=== PATIENT | female | born 1965 | race Caucasian/White ===

== ENCOUNTER → 2016-05-07 | Outpatient (CLI) | payer OTHER ==
[~2016-05-07] MED LIST: COREG3.125 MG PO; EFFEXOR XR75 MG PO; Fioricet 325 MG1 TAB PO; LEVAQUIN750 M1 PO; LIPITOR20 MG PO; LISINOPRIL10 M1 PO; LORAZEPAM1 MG PO; MELOXICAM15 MG PO; METFORMIN HCL500 MG PO; METFORMIN HYDR500 M1 PO; METFORMIN500 MG PO; Motrin,Rufen800 MG PO; PEPCID40 MG PO; PERCOCET 325 MG1 TA2 PO; VENLAFAXINE HY150 M2 PO; ZYRTEC10 M3 PO
== END | disposition home or self-care (01) ==
LOC: CARD 04-28 16:00
DX: I31.3 Pericardial effusion (noninflammatory) (principal)

== ENCOUNTER → 2016-12-16 | Outpatient (CLI) | payer OTHER ==
[2016-12-16 11:22] LABS: HEMOGLOBIN 11.9 g/dl (12.0-16.0); MEAN CELL VOLUME 91.1 fl (81.0-99.0); MEAN CORPUSCULAR HGB 30.1 pg (27.0-31.0); MEAN CORPUSCULAR HGB CONC 33.1 g/dl (33.0-37.0); MEAN PLATELET VOLUME 10.8 fl (9.6-12.3); PLATELET COUNT AUTOMATED 362 10*3/uL (130-400); RED BLOOD COUNT 3.95 10*6/uL (4.10-5.10); RED CELL DISTRI WIDTH 12.7 % (0-14.5); WHITE BLOOD COUNT 16.2 10*3/uL (4.8-10.8)
[2016-12-16 11:29] LABS: ALBUMIN 3.3 gm/dl (3.1-4.5); ALKALINE PHOSPHATASE 91 U/L (45-117); BUN 21 mg/dl (7-24); CHLORIDE 103 mmol/L (98-107); CREATININE 1.13 mg/dL (0.55-1.02); POTASSIUM 4.3 mmol/L (3.5-5.1); SGOT/AST 8 IU/L (3-35); SGPT/ALT 20 U/L (12-78); SODIUM 136 mmol/L (136-145); TOTAL PROTEIN 7.9 gm/dL (6.4-8.2)
[2016-12-16 11:40] LABS: PLATELET SUFFICIENCY NORMAL (NORMAL); TOTAL CELLS COUNTED 100 #CELLS
[2016-12-16 11:41] LABS: ROULEAUX SLIGHT
== END | disposition home or self-care (01) ==
LOC: LAB 10:40
PROVIDERS: Internal Medicine
DX: K52.9 Noninfective gastroenteritis and colitis, unspecified (principal)

== ENCOUNTER 2017-01-16 21:13 | Emergency (ER) | payer OTHER ==
[~2017-01-16] VITALS: Ht 182.8 cm; Wt 108.9 kg
[2017-01-16] MEDS ORDERED: NAPROSYN500 MG PO (22:46)
== END 2017-01-16 23:28 | disposition home or self-care (01) ==
LOC: ED 21:13
DX: S00.81XA Abrasion of other part of head, initial encounter (principal); S89.91XA Unspecified injury of right lower leg, initial encounter; F41.9 Anxiety disorder, unspecified; F32.9 Major depressive disorder, single episode, unspecified; I10 Essential (primary) hypertension; K21.9 Gastro-esophageal reflux disease without esophagitis; E11.65 Type 2 diabetes mellitus with hyperglycemia; E78.00 Pure hypercholesterolemia, unspecified; Z79.84 Long term (current) use of oral hypoglycemic drugs; Z79.899 Other long term (current) drug therapy; Z68.34 Body mass index [BMI] 34.0-34.9, adult; Z79.4 Long term (current) use of insulin; Z88.0 Allergy status to penicillin; Z90.49 Acquired absence of other specified parts of digestive tract; Z87.891 Personal history of nicotine dependence; W18.09XA Striking against other object with subsequent fall, initial encounter; Y93.01 Activity, walking, marching and hiking; Y92.89 Other specified places as the place of occurrence of the external cause; Y99.8 Other external cause status

== ENCOUNTER → 2017-02-24 | Outpatient (CLI) | payer OTHER ==
[~2017-02-24] MED LIST changes: +NAPROSYN500 MG PO
== END | disposition home or self-care (01) ==
LOC: MAMMO 08:40
DX: N63.20 Unspecified lump in the left breast, unspecified quadrant (principal); R92.8 Other abnormal and inconclusive findings on diagnostic imaging of breast

== ENCOUNTER → 2017-04-13 | Outpatient (CLI) | payer OTHER | END | disposition home or self-care (01) | LOC: LAB 10:34 | PROVIDERS: Internal Medicine | DX: R53.82 Chronic fatigue, unspecified (principal) ==

== ENCOUNTER → 2017-04-27 | Day surgery (SDC) | payer OTHER ==
[~2017-04-27] VITALS: Ht 182.8 cm; Wt 120.2 kg
[~2017-04-27] MED LIST changes: +ASPIRIN81 M1 PO; +Accuneb 0.1.25 MG/3 NEB; +EFFEXOR XR150 M1 PO; +GAS RELIEF 8080 MG PO; +GLUCOPHAGE1000 MG PO; +ISOSORBIDE DINI30 MG PO; +JANUVIA100 MG PO; +LASIX40 MG PO; -METFORMIN HCL500 MG PO; +PLAQUENIL200 MG PO; +TOPROL XL50 M1 PO; +TRULICITY1.5 MG/0.5 SC; +VITAMIN D-32000 UNIT PO
[2017-04-27 07:12] VITALS: BP 118/63
[2017-04-27 08:23] VITALS: BP 92/43
[2017-04-27 08:35] VITALS: BP 100/48
[2017-04-27 08:53] VITALS: BP 110/57
== END | disposition home or self-care (01) ==
LOC: SDC 04-26 14:45
DX: Z12.11 Encounter for screening for malignant neoplasm of colon (principal); I10 Essential (primary) hypertension; J45.909 Unspecified asthma, uncomplicated; E11.9 Type 2 diabetes mellitus without complications; K21.9 Gastro-esophageal reflux disease without esophagitis; F41.9 Anxiety disorder, unspecified; F32.9 Major depressive disorder, single episode, unspecified; F17.210 Nicotine dependence, cigarettes, uncomplicated; Z90.49 Acquired absence of other specified parts of digestive tract; Z88.0 Allergy status to penicillin; Z79.899 Other long term (current) drug therapy; E78.5 Hyperlipidemia, unspecified; K62.5 Hemorrhage of anus and rectum

== ENCOUNTER → 2017-06-10 | Outpatient (CLI) | payer OTHER | LOC: NM 05-31 09:00 | DX: K31.84 Gastroparesis (principal); R11.2 Nausea with vomiting, unspecified; K30 Functional dyspepsia ==

== ENCOUNTER → 2017-08-20 | Outpatient (CLI) | payer OTHER | END | disposition home or self-care (01) | LOC: RAD 07:40 | DX: E11.9 Type 2 diabetes mellitus without complications (principal); R11.11 Vomiting without nausea; R92.8 Other abnormal and inconclusive findings on diagnostic imaging of breast ==

== ENCOUNTER → 2017-09-02 | Outpatient (CLI) | payer OTHER | END | disposition home or self-care (01) | LOC: RAD 10:22 | DX: R92.8 Other abnormal and inconclusive findings on diagnostic imaging of breast (principal) ==

== ENCOUNTER 2018-05-05 18:23 | Emergency (ER) | payer OTHER ==
[~2018-05-05] VITALS: Ht 182.8 cm; Wt 117.9 kg
[2018-05-05] MEDS ORDERED: Motrin,Rufen800 MG PO (20:14)
[2018-05-05] MEDS ORDERED: CYCLOBENZAPRINE5 M3 PO (20:14)
== END 2018-05-05 20:25 | disposition home or self-care (01) ==
LOC: ED 18:23
DX: M25.551 Pain in right hip (principal); R10.30 Lower abdominal pain, unspecified; Z88.0 Allergy status to penicillin; Z79.899 Other long term (current) drug therapy; Z79.82 Long term (current) use of aspirin; Z87.891 Personal history of nicotine dependence; X58.XXXA Exposure to other specified factors, initial encounter; Y93.89 Activity, other specified; Y92.89 Other specified places as the place of occurrence of the external cause; Y99.8 Other external cause status

== ENCOUNTER → 2018-09-13 | Outpatient (CLI) | payer OTHER ==
[~2018-09-13] MED LIST changes: +CYCLOBENZAPRINE5 M3 PO
== END | disposition home or self-care (01) ==
LOC: RAD 14:43
DX: M79.605 Pain in left leg (principal); M79.89 Other specified soft tissue disorders; Z91.81 History of falling

== ENCOUNTER → 2018-10-21 | Outpatient (CLI) | payer OTHER ==
[~2018-10-21] MED LIST changes: +CYMBALTA30 MG PO; +GLIPIZIDE5 MG PO; +JARDIANCE25 MG PO; +OZEMPIC0.25 MG/01 SQ; +TRESIBA100 UNIT/1 SQ
[2018-10-21 12:06] LABS: ALBUMIN 3.7 gm/dl (3.1-4.5); CREATININE 1.33 mg/dL (0.55-1.02); POTASSIUM 4.4 mmol/L (3.5-5.1); TOTAL PROTEIN 7.4 gm/dL (6.4-8.2)
[2018-10-22 10:04] LABS: CREATININE,URINE 92.8 mg/dL (Not Estab.); MICRO ALBUMIN/CRE RATIO <3.2 (0.0-30.0)
== END | disposition home or self-care (01) ==
LOC: LAB 11:09
PROVIDERS: Internal Medicine Endocrinology, Diabetes & Metabolism
DX: E11.65 Type 2 diabetes mellitus with hyperglycemia (principal); E55.9 Vitamin D deficiency, unspecified; Z79.4 Long term (current) use of insulin

== ENCOUNTER → 2019-01-09 | Day surgery (SDC) | payer OTHER ==
[~2019-01-09] VITALS: Ht 182.8 cm; Wt 117.9 kg
[2019-01-09 07:45] VITALS: BP 117/58
[2019-01-09 08:34] VITALS: BP 95/44
[2019-01-09 08:49] VITALS: BP 112/55
[2019-01-09 09:05] VITALS: BP 112/57
== END | disposition home or self-care (01) ==
LOC: SDC 01-03 10:15
DX: K21.0 Gastro-esophageal reflux disease with esophagitis (principal); E78.5 Hyperlipidemia, unspecified; E11.9 Type 2 diabetes mellitus without complications; F41.9 Anxiety disorder, unspecified; J45.909 Unspecified asthma, uncomplicated; F32.9 Major depressive disorder, single episode, unspecified; I10 Essential (primary) hypertension; E66.9 Obesity, unspecified; Z68.34 Body mass index [BMI] 34.0-34.9, adult; Z98.51 Tubal ligation status; Z98.890 Other specified postprocedural states; Z88.0 Allergy status to penicillin; Z87.891 Personal history of nicotine dependence; Z79.899 Other long term (current) drug therapy; Z82.5 Family history of asthma and other chronic lower respiratory diseases

== ENCOUNTER → 2019-02-06 | Outpatient (CLI) | payer OTHER | END | disposition home or self-care (01) | LOC: NM 06:29 | DX: K31.84 Gastroparesis (principal); K52.9 Noninfective gastroenteritis and colitis, unspecified; E66.9 Obesity, unspecified; I10 Essential (primary) hypertension; E11.9 Type 2 diabetes mellitus without complications; K21.9 Gastro-esophageal reflux disease without esophagitis ==

== ENCOUNTER → 2019-11-04 | Outpatient (CLI) | payer OTHER ==
[2019-11-04 08:59] LABS: ALBUMIN 3.5 gm/dl (3.1-4.5); ALKALINE PHOSPHATASE 86 U/L (45-117); BUN 19 mg/dl (7-24); CHLORIDE 110 mmol/L (98-107); CHOLESTEROL 152 mg/dL (<200); CREATININE 1.14 mg/dL (0.55-1.02); HDL CHOLESTEROL 43 mg/dl (40-60); LDL CHOLESTEROL 88 mg/dL (9-159); POTASSIUM 4.3 mmol/L (3.5-5.1); SGOT/AST 14 IU/L (3-35); SGPT/ALT 23 U/L (12-78); SODIUM 138 mmol/L (136-145); TOTAL PROTEIN 7.5 gm/dL (6.4-8.2); TRIGLYCERIDES 103 mg/dl (<150); VLDL CHOLESTEROL 21 mg/dL (6-40)
== END | disposition home or self-care (01) ==
LOC: LAB 08:05
PROVIDERS: ATTEND Internal Medicine Endocrinology, Diabetes & Metabolism
DX: E11.65 Type 2 diabetes mellitus with hyperglycemia (principal); E55.9 Vitamin D deficiency, unspecified

== ENCOUNTER → 2019-11-30 | Outpatient (CLI) | payer OTHER ==
[~2019-11-30] MED LIST changes: +CRESTOR10 M1 PO
== END | disposition home or self-care (01) ==
LOC: MRI 14:47
PROVIDERS: ATTEND Podiatrist
DX: M19.072 Primary osteoarthritis, left ankle and foot (principal); R22.42 Localized swelling, mass and lump, left lower limb; M85.872 Other specified disorders of bone density and structure, left ankle and foot; M86.8X7 Other osteomyelitis, ankle and foot

== ENCOUNTER → 2020-01-31 | Outpatient (CLI) | payer OTHER | END | disposition home or self-care (01) | LOC: COVID19 09:46 | PROVIDERS: ATTEND Podiatrist | DX: Z01.818 Encounter for other preprocedural examination (principal); Z20.828 Contact with and (suspected) exposure to other viral communicable diseases ==

== ENCOUNTER → 2020-02-05 | Day surgery (SDC) | payer OTHER ==
[~2020-02-05] VITALS: Ht 182.8 cm; Wt 118.4 kg
[2020-02-05 11:15] VITALS: BP 120/56
[2020-02-05 12:36] VITALS: BP 103/53
[2020-02-05 12:51] VITALS: BP 109/59
[2020-02-05 13:06] VITALS: BP 103/53
[2020-02-06 12:09] LABS: ACID FAST SPEC PROCESSING Tissue Grinding (.)
== END ==
LOC: SDC 01-31 08:45
PROVIDERS: ATTEND Podiatrist
DX: M86.172 Other acute osteomyelitis, left ankle and foot (principal); L97.529 Non-pressure chronic ulcer of other part of left foot with unspecified severity; E11.621 Type 2 diabetes mellitus with foot ulcer; K21.9 Gastro-esophageal reflux disease without esophagitis; L08.9 Local infection of the skin and subcutaneous tissue, unspecified; M05.79 Rheumatoid arthritis with rheumatoid factor of multiple sites without organ or systems involvement; E11.65 Type 2 diabetes mellitus with hyperglycemia; I10 Essential (primary) hypertension; I42.9 Cardiomyopathy, unspecified; E78.2 Mixed hyperlipidemia; F41.9 Anxiety disorder, unspecified; F32.9 Major depressive disorder, single episode, unspecified; M06.9 Rheumatoid arthritis, unspecified; Z98.890 Other specified postprocedural states; J44.9 Chronic obstructive pulmonary disease, unspecified; Z79.4 Long term (current) use of insulin; Z79.899 Other long term (current) drug therapy

== ENCOUNTER → 2020-05-16 | Outpatient (CLI) | payer OTHER ==
[2020-05-16 10:42] LABS: CHLORIDE 110 mmol/L (98-107); POTASSIUM 4.3 mmol/L (3.5-5.1); SODIUM 139 mmol/L (136-145)
[2020-05-16 10:49] LABS: ALBUMIN 3.1 gm/dl (3.1-4.5); ALKALINE PHOSPHATASE 74 U/L (45-117); BUN 20 mg/dl (7-24); CHOLESTEROL 140 mg/dL (<200); CREATININE 1.07 mg/dL (0.55-1.02); HDL CHOLESTEROL 46 mg/dl (40-60); LDL CHOLESTEROL 59 mg/dL (9-159); SGOT/AST 6 IU/L (3-35); SGPT/ALT 14 U/L (12-78); TOTAL PROTEIN 6.8 gm/dL (6.4-8.2); TRIGLYCERIDES 174 mg/dl (<150); VLDL CHOLESTEROL 35 mg/dL (6-40)
[2020-05-17 10:07] LABS: CREATININE,URINE 144.2 mg/dL (Not Estab.)
== END | disposition home or self-care (01) ==
LOC: LAB 09:29
PROVIDERS: ATTEND Internal Medicine Endocrinology, Diabetes & Metabolism
DX: E11.65 Type 2 diabetes mellitus with hyperglycemia (principal); E55.9 Vitamin D deficiency, unspecified

== ENCOUNTER → 2020-08-30 | Outpatient (CLI) | payer OTHER ==
[2020-08-30 13:37] LABS: ALBUMIN 3.5 gm/dl (3.1-4.5); BUN 23 mg/dl (7-24); CHLORIDE 112 mmol/L (98-107); POTASSIUM 4.3 mmol/L (3.5-5.1); SODIUM 137 mmol/L (136-145)
[2020-08-30 13:41] LABS: ALKALINE PHOSPHATASE 75 U/L (45-117); CHOLESTEROL 129 mg/dL (<200); CREATININE 1.04 mg/dL (0.55-1.02); LDL CHOLESTEROL 67 mg/dL (9-159); SGOT/AST 12 IU/L (3-35); SGPT/ALT 18 U/L (12-78); TOTAL PROTEIN 7.4 gm/dL (6.4-8.2); TRIGLYCERIDES 111 mg/dl (<150)
== END | disposition home or self-care (01) ==
LOC: LAB 12:00
PROVIDERS: ATTEND Internal Medicine Endocrinology, Diabetes & Metabolism
DX: E11.65 Type 2 diabetes mellitus with hyperglycemia (principal); E55.9 Vitamin D deficiency, unspecified

== ENCOUNTER → 2020-09-10 | Outpatient (CLI) | payer OTHER | END | disposition home or self-care (01) | LOC: RAD 10:33 | PROVIDERS: ATTEND Chiropractor Orthopedic | DX: S46.012A Strain of muscle(s) and tendon(s) of the rotator cuff of left shoulder, initial encounter (principal); X58.XXXA Exposure to other specified factors, initial encounter; Y93.89 Activity, other specified; Y92.89 Other specified places as the place of occurrence of the external cause; Y99.8 Other external cause status ==

== ENCOUNTER → 2021-03-28 | Outpatient (CLI) | payer OTHER | END | disposition home or self-care (01) | LOC: US 11:00 | PROVIDERS: ATTEND Podiatrist | DX: R60.0 Localized edema (principal); R59.0 Localized enlarged lymph nodes ==

== ENCOUNTER → 2021-07-05 | Outpatient (CLI) | payer OTHER ==
[~2021-07-05] MED LIST changes: -CRESTOR10 M1 PO; +CRESTOR40 M1 PO; +IMDUR SA30 MG PO; -ISOSORBIDE DINI30 MG PO; +METRONIDAZOLE500 M1 PO; +MOBIC15 MG PO; +NEXIUM40 MG PO; +POTASSIUM CHLO10 ME5 PO; +TRIAMTERENE-HC1 EACH PO; +TRULICITY4.5 MG/0.5 SQ; -VITAMIN D-32000 UNIT PO; +VITAMIN D325 MCG PO
== END | disposition home or self-care (01) ==
LOC: LAB 09:16
PROVIDERS: ATTEND Nurse Practitioner Family
DX: R19.7 Diarrhea, unspecified (principal)

== ENCOUNTER → 2022-03-25 | Day surgery (SDC) | payer OTHER ==
[~2022-03-25] VITALS: Ht 182.8 cm; Wt 118.4 kg
[~2022-03-25] MED LIST changes: +DOXYCYCLINE HY100 M3 PO; +ENDOCET 5-3251 EACH PO; +Percocet 325 MG1 TAB PO
[2022-03-25 06:58] VITALS: BP 106/63
[2022-03-25 08:40] VITALS: BP 104/58
[2022-03-25 08:54] VITALS: BP 114/63
[2022-03-25 09:10] VITALS: BP 131/66
[2022-03-25 09:23] VITALS: BP 128/54
[2022-03-25 09:38] VITALS: BP 117/58
== END | disposition home or self-care (01) ==
LOC: SDC 03-20 12:30
PROVIDERS: ATTEND Podiatrist Foot & Ankle Surgery
DX: M20.41 Other hammer toe(s) (acquired), right foot (principal); F41.9 Anxiety disorder, unspecified; F32.A Depression, unspecified; K21.9 Gastro-esophageal reflux disease without esophagitis; E11.9 Type 2 diabetes mellitus without complications; J44.9 Chronic obstructive pulmonary disease, unspecified; F17.210 Nicotine dependence, cigarettes, uncomplicated; Z79.899 Other long term (current) drug therapy

== ENCOUNTER → 2022-08-31 | Outpatient (CLI) | payer MEDICAID | END | disposition home or self-care (01) | LOC: MAMMO 10:52 | PROVIDERS: ATTEND Physician Assistant | DX: Z12.31 Encounter for screening mammogram for malignant neoplasm of breast (principal); N63.20 Unspecified lump in the left breast, unspecified quadrant ==

== ENCOUNTER → 2022-12-10 | Outpatient (CLI) | payer OTHER, MEDICAID | END | disposition home or self-care (01) | LOC: MRI 01:09 | PROVIDERS: ATTEND Podiatrist Foot & Ankle Surgery | DX: M86.8X7 Other osteomyelitis, ankle and foot (principal); M21.962 Unspecified acquired deformity of left lower leg; M19.072 Primary osteoarthritis, left ankle and foot; M79.89 Other specified soft tissue disorders ==

== ENCOUNTER → 2023-01-01 | Outpatient (CLI) | payer OTHER, MEDICAID | END | disposition home or self-care (01) | LOC: MRI 12-30 09:00 | PROVIDERS: ATTEND Podiatrist Foot & Ankle Surgery | DX: M19.071 Primary osteoarthritis, right ankle and foot (principal); M72.2 Plantar fascial fibromatosis; M76.821 Posterior tibial tendinitis, right leg ==

== ENCOUNTER → 2023-02-16 | Day surgery (SDC) | payer OTHER, MEDICAID ==
[2023-02-16 10:29] LABS: BASO # 0.1 10*3/uL (0.0-0.1); BASO % 1.1 % (0.0-1.0); EOS # 0.3 10*3/uL (0.0-0.4); EOS % 4.3 % (1.0-4.0); HEMATOCRIT 35.1 % (37.0-47.0); MEAN CELL VOLUME 92.6 fl (81.0-99.0); MEAN CORPUSCULAR HGB 30.1 pg (27.0-31.0); MEAN CORPUSCULAR HGB CONC 32.5 g/dl (33.0-37.0); MEAN PLATELET VOLUME 12.7 fl (9.6-12.3); MONO # 0.7 10*3/uL (0.1-1.0); MONO % 9.7 % (3.0-9.0); NEUT % 56.8 % (47.0-73.0); PLATELET COUNT AUTOMATED 210 10*3/uL (130-400); RED BLOOD COUNT 3.79 10*6/uL (4.10-5.10); RED CELL DISTRI WIDTH 12.3 % (0-14.5)
[2023-02-16 11:05] LABS: ALKALINE PHOSPHATASE 71 U/L (46-116); BUN 23 mg/dl (9-23); CHLORIDE 108 mmol/L (98-107); CPK 41 U/L (34-171); POTASSIUM 4.1 mmol/L (3.4-5.1); TOTAL PROTEIN 6.7 gm/dL (6.0-8.0)
[2023-02-16 11:07] LABS: SGPT/ALT < 7 U/L (5-49)
== END | disposition home or self-care (01) ==
LOC: SDC 07:58
PROVIDERS: ATTEND Student in an Organized Health Care Education/Training Program
DX: Z48.01 Encounter for change or removal of surgical wound dressing (principal); M86.179 Other acute osteomyelitis, unspecified ankle and foot

== ENCOUNTER → 2023-06-17 | Outpatient (CLI) | payer OTHER, MEDICAID ==
[2023-06-17 16:26] LABS: VITAMIN D, 25-HYDROXY 67.8 ng/mL (30-100)
== END | disposition home or self-care (01) ==
LOC: LAB 15:40
PROVIDERS: ATTEND Nurse Practitioner Family
DX: E83.52 Hypercalcemia (principal)

== ENCOUNTER 2023-11-09 21:33 | Inpatient (IN) | payer OTHER ==
[~2023-11-09] VITALS: Ht 182.8 cm; Wt 109.4 kg
[2023-11-09 22:13] VITALS: BP 125/77
[2023-11-09 23:49] LABS: BASO # 0.1 10*3/uL (0.0-0.1); BASO % 0.6 % (0.0-1.0); EOS # 0.4 10*3/uL (0.0-0.4); HEMATOCRIT 37.3 % (37.0-47.0); MEAN CELL VOLUME 91.2 fl (81.0-99.0); MEAN CORPUSCULAR HGB 30.1 pg (27.0-31.0); MEAN PLATELET VOLUME 11.7 fl (9.6-12.3); MONO # 1.2 10*3/uL (0.1-1.0); MONO % 9.3 % (3.0-9.0); NEUT # 7.9 10*3/uL (2.3-7.9); NEUT % 62.8 % (47.0-73.0); PLATELET COUNT AUTOMATED 220 10*3/uL (130-400); RED BLOOD COUNT 4.09 10*6/uL (4.10-5.10); RED CELL DISTRI WIDTH 12.6 % (0-14.5); WHITE BLOOD COUNT 12.6 10*3/uL (4.8-10.8)
[2023-11-10] VITALS (8 sets, daily range): BP systolic 97–127; BP diastolic 50–71
[2023-11-10 00:32] LABS: POTASSIUM 4.4 mmol/L (3.4-5.1)
[2023-11-10] MEDS ORDERED: MOUNJARO7.5 MG/0.1 SQ (02:05)
[2023-11-10] MEDS ORDERED: WELLBUTRIN XL150 MG PO (02:07)
[2023-11-10] MEDS ORDERED: BUPROPION HYDR150 M3 PO (02:08)
[2023-11-10] MEDS ORDERED: Cefepime Hydrochloride 1 GM in SODIUM CHLORIDE 0.9% 50 ML IV ONE (02:10)
[2023-11-10] MEDS ORDERED: Vancomycin Hydrochloride 250 ML IV ONE (02:10)
[2023-11-10] MEDS ORDERED: MORPHINE Sulfate 2 MG/ML SYR IV PRN (04:35)
[2023-11-10] MEDS ORDERED: TEMAZEPAM 15 MG CAP PO PRN (04:35)
[2023-11-10] MEDS ORDERED: BISACODYL 10 MG SUPP R PRN (04:35)
[2023-11-10] MEDS ORDERED: Magnesium Hydroxide 30 ML UDC PO PRN (04:35)
[2023-11-10] MEDS ORDERED: ACETAMINOPHEN 650 MG SUPP R PRN (04:35)
[2023-11-10] MEDS ORDERED: ACETAMINOPHEN 325 MG TAB PO PRN (04:35)
[2023-11-10] MEDS ORDERED: BISACODYL 5 MG TAB PO PRN (04:35)
[2023-11-10] MEDS ORDERED: Acetaminophen/Hydrocodone 5 MG/325 MG TABLET PO PRN (04:35)
[2023-11-10] MEDS ORDERED: Ondansetron Hydrochloride 4 MG/2 ML VIAL IV PRN (04:35)
[2023-11-10] MEDS ORDERED: Pantoprazole Sodium 40 MG TAB PO PRN (04:45)
[2023-11-10] MEDS ORDERED: Cefepime Hydrochloride 1 GM in SODIUM CHLORIDE 0.9% 50 ML IV SCH (04:50)
[2023-11-10] MEDS ORDERED: Vancomycin Hydrochloride 1,000 MG in SODIUM CHLORIDE 0.9% 250 ML IV SCH (04:50)
[2023-11-10] MEDS ORDERED: SODIUM CHLORIDE 0.9% 1,000 ML IV ONE (04:50)
[2023-11-10 06:20] LABS: BASO # 0.1 10*3/uL (0.0-0.1); BASO % 0.6 % (0.0-1.0); EOS # 0.3 10*3/uL (0.0-0.4); EOS % 4.1 % (1.0-4.0); HEMATOCRIT 35.5 % (37.0-47.0); LYMPH # 2.4 10*3/uL (1.3-4.4); LYMPH % 30.4 % (27.0-41.0); MEAN CELL VOLUME 89.4 fl (81.0-99.0); MEAN CORPUSCULAR HGB 30.5 pg (27.0-31.0); MEAN CORPUSCULAR HGB CONC 34.1 g/dl (33.0-37.0); MEAN PLATELET VOLUME 11.6 fl (9.6-12.3); MONO # 0.8 10*3/uL (0.1-1.0); MONO % 10.1 % (3.0-9.0); NEUT # 4.3 10*3/uL (2.3-7.9); NEUT % 54.4 % (47.0-73.0); PLATELET COUNT AUTOMATED 182 10*3/uL (130-400); RED BLOOD COUNT 3.97 10*6/uL (4.10-5.10); RED CELL DISTRI WIDTH 12.6 % (0-14.5); WHITE BLOOD COUNT 7.8 10*3/uL (4.8-10.8)
[2023-11-10] MEDS ORDERED: METRONIDAZOLE 100 ML IV SCH (07:00)
[2023-11-10 07:56] LABS: VITAMIN D, 25-HYDROXY 72.9 ng/mL (30-100)
[2023-11-10 07:59] LABS: FREE T4 1.26 ng/dl (0.89-1.76); POTASSIUM 4.1 mmol/L (3.4-5.1)
[2023-11-10] MEDS ORDERED: SODIUM CHLORIDE 0.9% 50 ML BAG IV ONE (08:16)
[2023-11-10] MEDS ORDERED: Cefepime Hydrochloride 1 GM VIAL IV ONE (08:16)
[2023-11-10] MEDS ORDERED: Vancomycin Hydrochloride 250 ML IV SCH (11:30)
[2023-11-10] MEDS ORDERED: ACETAMINOPHEN 100 ML IV ONE (12:34)
[2023-11-10] MEDS ORDERED: Lactated Ringer's Solution 1,000 ML IV ONE ×2 (13:00→13:10)
[2023-11-10] MEDS ORDERED: HYDROmorphONE Hydrochloride 0.5 MG/0.5 ML SYRINGE IV PRN (13:00)
[2023-11-10] MEDS ORDERED: Vancomycin Hydrochloride 1,000 MG VIAL ONE (13:21)
[2023-11-10] MEDS ORDERED: BUPIVACAINE 0.5% 30 ML IV ONE (13:22)
[2023-11-10] MEDS ORDERED: Cefepime Hydrochloride 2 GM in SODIUM CHLORIDE 0.9% 50 ML IV SCH (14:00)
[2023-11-10] MEDS ORDERED: VANCOMYCIN/WATER FOR INJ (PEG) 350 ML IV SCH (16:00)
[2023-11-10] MEDS ORDERED: glipiZIDE 5 MG TAB PO SCH (16:30)
[2023-11-10] MEDS ORDERED: DEXTROSE 10 % IN WATER 250 ML IV PRN (17:50)
[2023-11-10] MEDS ORDERED: Hydroxychloroquine Sulfate 200 MG TAB PO SCH (22:00)
[2023-11-10] MEDS ORDERED: INSULIN LISPRO 1 UNIT/0.01 ML SQ SCH (22:00)
[2023-11-10] MEDS ORDERED: ATORVASTATIN CALCIUM 40 MG TABLET PO SCH (22:00)
[2023-11-10] MEDS ORDERED: METRONIDAZOLE 500 MG TAB PO SCH (22:00)
[2023-11-10] MEDS ORDERED: Insulin Glargine, Recombinan 1 UNIT/0.01 ML SC SCH (22:00)
[2023-11-10] MEDS ORDERED: ASPIRIN ENTERIC COATED 81 MG TAB PO SCH (22:00)
[2023-11-10] MEDS ORDERED: buPROPion XL 150 MG TAB PO SCH (22:00)
[2023-11-11] VITALS: BP 128/61
[2023-11-11 06:46] LABS: BASO % 0.7 % (0.0-1.0); EOS # 0.2 10*3/uL (0.0-0.4); EOS % 3.8 % (1.0-4.0); HEMATOCRIT 35.7 % (37.0-47.0); LYMPH # 1.6 10*3/uL (1.3-4.4); LYMPH % 26.1 % (27.0-41.0); MEAN CORPUSCULAR HGB 29.7 pg (27.0-31.0); MEAN CORPUSCULAR HGB CONC 33.3 g/dl (33.0-37.0); MEAN PLATELET VOLUME 11.2 fl (9.6-12.3); MONO # 0.7 10*3/uL (0.1-1.0); NEUT # 3.5 10*3/uL (2.3-7.9); NEUT % 58.2 % (47.0-73.0); PLATELET COUNT AUTOMATED 194 10*3/uL (130-400); RED BLOOD COUNT 4.01 10*6/uL (4.10-5.10); RED CELL DISTRI WIDTH 12.5 % (0-14.5)
[2023-11-11 07:05] LABS: CHLORIDE 108 mmol/L (98-107); POTASSIUM 4.4 mmol/L (3.4-5.1)
[2023-11-11 07:06] LABS: BUN 15 mg/dl (9-23)
[2023-11-11 08:00] VITALS: BP 108/68; BP 108/89
[2023-11-11] MEDS ORDERED: buPROPion XL 150 MG TAB PO SCH (10:00)
[2023-11-11] MEDS ORDERED: ISOSORBIDE MONONITRATE 30 MG TAB PO SCH (10:00)
[2023-11-11] MEDS ORDERED: Cholecalciferol 5,000 IU CAP (125 MCG) PO SCH (10:00)
[2023-11-11] MEDS ORDERED: LISINOPRIL 10 MG TAB PO SCH (10:00)
[2023-11-11] MEDS ORDERED: VANCOMYCIN/WATER FOR INJ (PEG) 350 ML IV SCH (10:00)
[2023-11-11] MEDS ORDERED: METOPROLOL SUCCINATE XR 50 MG TAB PO SCH (10:00)
[2023-11-11] MEDS ORDERED: Pantoprazole Sodium 40 MG TAB PO SCH (10:00)
[2023-11-11] MEDS ORDERED: ATORVASTATIN CALCIUM 40 MG TABLET PO SCH (10:00)
[2023-11-11] MEDS ORDERED: ASPIRIN ENTERIC COATED 81 MG TAB PO SCH (10:00)
[2023-11-11] MEDS ORDERED: Cetirizine Hydrochloride 10 MG TAB PO SCH (10:00)
[2023-11-11 12:00] VITALS: BP 120/80; BP 121/95
[2023-11-11] MEDS ORDERED: PROPOFOL 200 MG/20 ML VIAL IV ONE (13:07)
[2023-11-11] MEDS ORDERED: Midazolam Hydrochloride 2 MG/2 ML VIAL IV ONE (13:07)
[2023-11-11] MEDS ORDERED: Lidocaine Hydrochloride 2% 10 ML AMP IM ONE (13:07)
[2023-11-11 16:00] VITALS: BP 120/62
[2023-11-11] MEDS ORDERED: Ceftriaxone Sodium 2 GM in SYRINGE INFUSION 20 ML IV SCH (16:00)
[2023-11-11 16:10] LABS: ACID FAST SPEC PROCESSING Tissue Grinding (.)
[2023-11-11 16:10] LABS: ACID FAST SPEC PROCESSING Tissue Grinding (.)
[2023-11-11 20:00] VITALS: BP 113/55
[2023-11-11] MEDS ORDERED: CEFTRIAXONE2 G1 IV (21:31)
[2023-11-11] MEDS ORDERED: METRONIDAZOLE500 M1 PO (21:31)
[2023-11-12] VITALS: BP 100/44
[2023-11-12 06:25] LABS: BASO # 0.1 10*3/uL (0.0-0.1); BASO % 0.9 % (0.0-1.0); EOS # 0.2 10*3/uL (0.0-0.4); EOS % 4.1 % (1.0-4.0); HEMATOCRIT 35.8 % (37.0-47.0); LYMPH # 1.6 10*3/uL (1.3-4.4); LYMPH % 29.1 % (27.0-41.0); MEAN CELL VOLUME 90.6 fl (81.0-99.0); MEAN CORPUSCULAR HGB 30.4 pg (27.0-31.0); MEAN CORPUSCULAR HGB CONC 33.5 g/dl (33.0-37.0); MEAN PLATELET VOLUME 11.8 fl (9.6-12.3); MONO # 0.6 10*3/uL (0.1-1.0); NEUT # 3.1 10*3/uL (2.3-7.9); NEUT % 54.7 % (47.0-73.0); PLATELET COUNT AUTOMATED 193 10*3/uL (130-400); RED BLOOD COUNT 3.95 10*6/uL (4.10-5.10); RED CELL DISTRI WIDTH 12.4 % (0-14.5); WHITE BLOOD COUNT 5.6 10*3/uL (4.8-10.8)
[2023-11-12 06:31] LABS: BUN 16 mg/dl (9-23); CHLORIDE 107 mmol/L (98-107); POTASSIUM 4.3 mmol/L (3.4-5.1)
[2023-11-12] MEDS ORDERED: Pantoprazole Sodium 40 MG TAB PO SCH (07:00)
[2023-11-12 08:00] VITALS: BP 112/58
[2023-11-12] MEDS ORDERED: METRONIDAZOLE500 M1 PO (10:47)
[2023-11-12] MEDS ORDERED: CEFTRIAXONE2 G1 IV (10:47)
[2023-11-12 12:00] VITALS: BP 120/65
[2023-11-12] MEDS ORDERED: Ceftriaxone Sodium 2 GM in SYRINGE INFUSION 20 ML IV ONE (13:45)
== END 2023-11-12 15:10 | disposition home or self-care (01) | DRG 629 ==
LOC: ED 21:33 → 4E 11-10 04:31 → EDHOLD 11-10 04:31 → 4E 11-10 08:06
PROVIDERS: Emergency Medicine; Podiatrist; Student in an Organized Health Care Education/Training Program; ADMIT Internal Medicine; ATTEND Internal Medicine
PROC: 0QBQ0ZZ Excision of Right Toe Phalanx, Open Approach (ICD-10-PCS; principal; 2023-11-10)
DX: E11.69 Type 2 diabetes mellitus with other specified complication (principal); E87.1 Hypo-osmolality and hyponatremia; M86.8X7 Other osteomyelitis, ankle and foot; N17.0 Acute kidney failure with tubular necrosis; E83.52 Hypercalcemia; E11.621 Type 2 diabetes mellitus with foot ulcer; I10 Essential (primary) hypertension; K21.9 Gastro-esophageal reflux disease without esophagitis; L03.032 Cellulitis of left toe; D72.829 Elevated white blood cell count, unspecified; F17.210 Nicotine dependence, cigarettes, uncomplicated; L97.529 Non-pressure chronic ulcer of other part of left foot with unspecified severity; F41.9 Anxiety disorder, unspecified; F32.A Depression, unspecified; E78.00 Pure hypercholesterolemia, unspecified; E66.9 Obesity, unspecified; A49.1 Streptococcal infection, unspecified site; Z79.4 Long term (current) use of insulin; Z90.49 Acquired absence of other specified parts of digestive tract; Z88.0 Allergy status to penicillin; Z79.899 Other long term (current) drug therapy; Z79.01 Long term (current) use of anticoagulants; Z79.2 Long term (current) use of antibiotics; Z98.891 History of uterine scar from previous surgery; Z82.49 Family history of ischemic heart disease and other diseases of the circulatory system; Z81.8 Family history of other mental and behavioral disorders; Z71.6 Tobacco abuse counseling; Z68.33 Body mass index [BMI] 33.0-33.9, adult

== ENCOUNTER → 2023-11-25 | Outpatient (CLI) | payer OTHER ==
[~2023-11-25] MED LIST changes: +BUPROPION HYDR150 M3 PO; +CEFTRIAXONE2 G1 IV; +MOUNJARO7.5 MG/0.1 SQ; +WELLBUTRIN XL150 MG PO
== END | disposition home or self-care (01) ==
LOC: US 13:15
PROVIDERS: ATTEND Physician Assistant
DX: R60.0 Localized edema (principal); M79.89 Other specified soft tissue disorders; M86.9 Osteomyelitis, unspecified